=== PATIENT | female | born 1970 | race Caucasian/White ===

== ENCOUNTER 2018-06-17 15:03 | Emergency (ER) | payer BC ==
[~2018-06-17] VITALS: Ht 175.3 cm; Wt 88.9 kg
[2018-06-17 15:14] VITALS: BP_SYST 160
--- NOTE | 2018-06-17 15:17 | NUR ---
Patient to ER bed 05 to gown for evaluation. Side rails up.
--- NOTE | 2018-06-17 15:20 | NUR ---
Patient comes in to ER in personal vehicle, [employer], verbal and ambulatory. Patient has complaint of RT flank pain 5/10 x 4 days. Complaint of nausea no vomiting. Denies painful urination or hematuria. Denies diarrhea. No other complaint or injury at this time.
--- NOTE | 2018-06-17 15:25 | NUR ---
DR MOURA at bedside for ER evaluation
[2018-06-17] MEDS ORDERED: NACL 0.9% 1,000 ML IV ONE (15:29)
[2018-06-17] MEDS ORDERED: ONDANSETRON HCL 4 MG/2 ML VIAL IVP ONE (15:30)
[2018-06-17] MEDS ORDERED: MORPHINE 4 MG/ML INJ. SYRINGE IVP ONE (15:30)
--- NOTE | 2018-06-17 15:42 | NUR ---
Patient is refusing IV insertion and all medications at this time, she states "I'm ok" "I want to watch and wait" She states that if testing shows something ugent then she will reconsider at that time.
[2018-06-17 15:53] LABS: BILIRUBIN,URINE NEGATIVE (NEGATIVE); CLARITY/URINE CLEAR (CLEAR); COLOR,URINE YELLOW (YELLOW); GLUCOSE,URINE NEGATIVE (NEGATIVE); KETONES,URINE NEGATIVE (NEGATIVE); LEUKOCYTE ESTERASE ,URINE 1+ (NEGATIVE); NITRITE, URINE NEGATIVE (NEGATIVE); PROTEIN URINE NEGATIVE (NEGATIVE); UROBILINOGEN,URINE 0.2 (0.2-1.0)
[2018-06-17 16:00] LABS: BLOOD, URINE TRACE (NEGATIVE)
[2018-06-17 16:01] LABS: BACTERIA,URINE FEW /HPF (None Seen); MUCUS,URINE None Seen /LPF (None Seen); RBC,URINE 0-3 /HPF (0-3)
[2018-06-17] MEDS ORDERED: FUROSEMIDE 20 MG/2 ML VIAL IVP SCH (16:15)
--- NOTE | 2018-06-17 16:20 | NUR ---
Attempted to start IV and IVF but again patient refused, notified.
[2018-06-17 16:59] LABS: BASOPHILS % (AUTO) 0.3 % (0.0-2.0); EOSINOPHILS % (AUTO) 0.3 % (0.0-4.0); HEMATOCRIT 42.1 % (36-48); HEMOGLOBIN 14.2 g/dL (12.0-16.0); LYMPHOCYTES % (AUTO) 21.5 % (20.5-51.5); MEAN CORPUSCULAR HEMOGLOBIN 29 pg (27-31); MEAN CORPUSCULAR HGB CONC 34 % (32-36); MEAN CORPUSCULAR VOLUME 86 fL (79.0-98.0); MONOCYTES # (AUTO) 0.6 K/uL (0.0-1.0); NEUTROPHILS # (AUTO) 6.7 K/uL (1.8-7.7); NEUTROPHILS % (AUTO) 71.9 % (40.0-70.0); PLATELET COUNT (AUTO) 304 K/uL (130-430); RED BLOOD CELL COUNT(AUTO) 4.91 MIL/uL (4.2-6.2); RED CELL DISTRIBUTION WIDTH 13.3 % (9.0-15.0); WHITE BLOOD COUNT (AUTO) 9.3 K/uL (4.8-10.8)
[2018-06-17 17:10] LABS: CALCIUM 8.9 mg/dL (8.4-11.0); CREATININE 0.76 mg/dL (0.55-1.30); POTASSIUM 3.8 mmol/L (3.5-5.1)
[2018-06-17 17:13] LABS: PROTHROMBIN TIME 9.9 SECS (9.5-12.5)
[2018-06-17 17:15] LABS: ALBUMIN 3.6 g/dL (3.4-4.8); TOTAL BILIRUBIN 0.3 mg/dL (0.0-1.0)
[2018-06-17 17:26] VITALS: BP_SYST 149
--- NOTE | 2018-06-17 17:28 | NUR ---
Patient given written and verbal discharge instructions and verbalizes understanding. ER MD discussed with patient the results and treatment provided. Patient in stable condition. ID arm band removed. Rx of Tylenol with codeine and Colace given. Patient educated on pain management and to follow up with PMD. Pain Scale 2/10 tolerable for patient. Opportunity for questions provided and answered. Medication side effect fact sheet provided.
== END 2018-06-17 17:26 | disposition home or self-care (01) ==
LOC: SED 15:03
DX: K59.00 Constipation, unspecified (principal); I10 Essential (primary) hypertension; Z88.8 Allergy status to other drugs, medicaments and biological substances
CPT/HCPCS: 36415; 71045; 80053; 81000-TC; 82150-TC; 82550-TC; 83605; 83690-TC; 85025; 85610-TC; 85730-TC; 87040-TC; 93005; 99284